=== PATIENT | female | born 1975 | race Caucasian/White ===

== ENCOUNTER → 2025-03-29 | Outpatient (CLI) | payer BC, SELFPAY ==
[2025-03-29 16:08] LABS: Hematocrit 42.0 % (37-47); Hemoglobin 14.1 g/dL (12.0-15.0); Immature Granulocytes Count 0.020 X10^3/uL (0.0-0.0); Mean Corp Hgb Conc 33.6 g/dL (32-36); Mean Corpuscular Volume 92.9 fL (81-99); Mean Platelet Vol. 10.2 fl (6.2-12.0); NRBC Flagged by Analyzer 0 % (0-5); Platelet Count 315 K/mm3 (150-450); RBC Distribution Width CV 13.6 % (11.6-14.6); RBC Distribution Width SD 46.5 fl (35.1-43.9); Red Blood Count 4.52 M/mm3 (4.2-5.4); White Blood Count 7.6 K/mm3 (4.4-11.0)
[2025-03-29 16:30] LABS: AST(SGOT) 21 U/L (<=31); Alanine Aminotransfer ALT/SGPT 23 U/L (<=34); Albumin, Serum 4.5 g/dL (3.5-5.0); Alkaline Phosphatase 66 U/L (35-104); Anion Gap 10 (5-15); BUN 19 mg/dL (4-19); BUN/Creat Ratio 23.5 RATIO (10-20); Calcium,Total 10.2 mg/dL (7.6-11.0); Carbon Dioxide 31.5 mmol/L (21.0-32.0); Chloride 101 mmol/L (98-108); Ferritin 165 ng/mL (22-378); Free T3 2.3 pg/mL (2.18-3.98); Globulin 3.1 g/dL (2.2-4.2); Glucose 76 mg/dL (70-99); Potassium 3.8 mmol/L (3.3-5.1)
[2025-03-29 16:46] LABS: Iron 140 ug/dL (50-170); Iron Binding Capacity,Total 357 ug/dL (250-450); Iron Binding Capacity,Unsat 217 ug/dL (228-428)
[2025-04-03 05:07] LABS: Red Blood Cell Count Test/G6PD 4.64 x10E6/uL (3.77-5.28)
== END | disposition home or self-care (01) ==
PROVIDERS: Referring Provider Nurse Practitioner Family; Visit Provider Nurse Practitioner Family
DX: R53.83 Other fatigue (principal); R06.02 Shortness of breath; R21 Rash and other nonspecific skin eruption; A69.20 Lyme disease, unspecified; L40.9 Psoriasis, unspecified; K90.0 Celiac disease; G43.909 Migraine, unspecified, not intractable, without status migrainosus; R19.7 Diarrhea, unspecified; R11.0 Nausea; R92.343 Mammographic extreme density, bilateral breasts
CPT/HCPCS: 80053; 82728; 82955; 83540; 83550; 84439; 84443; 84481; 85025